=== PATIENT | male | born 1955 | race Two or more races ===

== ENCOUNTER 2018-02-01 15:23 | Emergency (ER) | payer SELFPAY ==
--- NOTE | 2018-02-01 16:32 | ER Document Report ---
HPI - HPI Patient complains to provider of: medial left thgh vanessa/red Onset: This morning Onset/Duration: Sudden Pain Level: 4 Context: 62 yo non diabetic male with red area and pain to left upper medial thigh. Chronic bilateral lower leg rash that he has been scratching. Cream in past helped. No fever Associated Symptoms: None Exacerbated by: Walking Relieved by: Denies - ROS ROS below otherwise negative: Yes Systems Reviewed and Negative: Yes All other systems reviewed and negative Past Medical History - General Information source: Patient - Social History Smoking Status: Unknown if Ever Smoked Frequency of alcohol use: None Drug Abuse: None Lives with: Family Family History: Reviewed & Not Pertinent - Medical History Medical History: Negative Surgical Hx: Negative Vertical Provider Document - CONSTITUTIONAL Agree With Documented VS: Yes Exam Limitations: No Limitations General Appearance: No Apparent Distress - MUSCULOSKELETAL/EXTREMETIES Musculoskeletal/Extremeties: MAEW, FROM, Tender - lymphangitis from left lower leg to the medial thigh tender lymph nodes. - NEURO Level of Consciousness: Alert Motor/Sensory: No Motor Deficit, No Sensory Deficit - DERM Integumentary: Rash - extensive bilateral anterior/lateral lower leg hyperkeratotic ovid scaling rash with excoriations from scratching Course - Re-evaluation Re-evalutation: 02/01/18 marked the lyphangitis with purple marking pen - Vital Signs Vital signs: Temp Pulse Resp BP Pulse Ox 98.7 F 67 16 170/86 H 96 02/01/18 16:05 02/01/18 16:05 02/01/18 16:05 02/01/18 16:05 02/01/18 16:05 Discharge - Discharge Clinical Impression: Tinea corporis, Adenopathy, Infection, chronic rash Condition: Good Disposition: HOME, SELF-CARE Instructions: Cephalexin ([facility]), Lymphadenopathy ([facility]), Rocephin ([facility]), Topical Antifungal ([facility]), Trimethoprim-Sulfa ([facility]) Additional Instructions: Return for recheck tomorrow to make sure that the redness is going down Return to the emergency room sooner if you develop a fever chills and sweats antifungal cream three times per day See the accounts supervisor, YOU MAY NEED A BIOPSY Prescriptions: Cephalexin Monohydrate [Keflex 500 mg Capsule] 500 mg PO QID #28 capsule Sulfamethoxazole/Trimethoprim [Sulfamethoxazole-Tmp Ds Tablet] 1 each PO BID # 14 tablet Terbinafine HCl [Lamisil At] 60 gm TP TID #60 cream.gm. Referrals: LAYNE PHAM DO [ACTIVE STAFF] - Follow up tomorrow
[2018-02-01] MEDS ORDERED: LIDOCAINE 1% INJ-PF (10 MG/ML) 30 ML SDV INFIL ONE (16:46)
[2018-02-01] MEDS ORDERED: CEFTRIAXONE INJ 1000 MG VIAL IM ONE (16:46)
--- NOTE | 2018-02-01 16:47 | ER Document Report ---
HPI - HPI Pain Level: 4 Course - Vital Signs Vital signs: Temp Pulse Resp BP Pulse Ox 98.7 F 67 16 170/86 H 96 02/01/18 16:05 02/01/18 16:05 02/01/18 16:05 02/01/18 16:05 02/01/18 16:05 Discharge - Discharge Referrals: VASQUEZ ROSADO MD [Primary Care Provider] - Follow up as needed
[2018-02-01 17:32] VITALS: BP 159/91
== END 2018-02-01 17:29 | disposition home or self-care (01) ==
LOC: ER 15:23
DX: B35.4 Tinea corporis (principal); R59.9 Enlarged lymph nodes, unspecified; M79.652 Pain in left thigh; R21 Rash and other nonspecific skin eruption
CPT/HCPCS: 99282; 96372; J3490; J0696